=== PATIENT | male | born 1970 | race Hispanic/Latino ===

== ENCOUNTER 2017-12-13 22:13 | Emergency (ER) | payer OTHER | END 2017-12-13 23:26 | disposition home or self-care (01) | LOC: EDH 22:13 | DX: S10.91XA Abrasion of unspecified part of neck, initial encounter (principal); Z72.0 Tobacco use; V49.49XA Driver injured in collision with other motor vehicles in traffic accident, initial encounter; Y93.89 Activity, other specified; Y92.89 Other specified places as the place of occurrence of the external cause; Y99.8 Other external cause status ==

== ENCOUNTER 2021-02-06 16:21 | Inpatient (IN) | payer OTHER ==
[~2021-02-06] VITALS: Ht 167.6 cm; Wt 79.8 kg
[2021-02-06 16:23] VITALS: BP 137/75
[2021-02-06] MEDS ORDERED: HYDROCODONE/ACETAMINOPHEN 10/325 MG TAB PO ONE (17:00)
[2021-02-06] MEDS ORDERED: TETANUS/DIPHTHERIA TOXOID [ADULT] 0.5 ML VIAL IM ONE (17:00)
[2021-02-06] MEDS ORDERED: 0.9% NACL 50ML 50 ML IV.SOLN. IV SCH (17:00)
[2021-02-06] MEDS ORDERED: PIP/TAZ ZOSYN 3.375G 3.375 GM VIAL IVPB ONE (17:00)
[2021-02-06] MEDS ORDERED: DOXYCYCLINE 100MG IVPB (VIAL) IVPB ONE (17:15)
[2021-02-06] MEDS ORDERED: 0.9%NACL 250ML IV ONE (17:15)
[2021-02-06 17:17] LABS: BASOPHILS % (AUTO) 0.2 % (0.0-5.0); EOSINOPHILS % (AUTO) 0.8 % (0.0-8.0); HEMATOCRIT 38.7 % (42-54); LYMPHOCYTES % (AUTO) 6.5 % (21.0-51.0); MEAN CORPUSCULAR HEMOGLOBIN 31.2 pg (27.0-33.0); MEAN CORPUSCULAR HGB CONC 33.1 g/dL (32.0-36.0); MEAN CORPUSCULAR VOLUME 94.4 fL (79-99); MONOCYTES % (AUTO) 7.4 % (3.0-13.0); NEUTROPHILS % (AUTO) 84.7 % (40.0-77.0); PLATELET COUNT (AUTO) 339 K/uL (130-400); RED CELL DISTRIBUTION WIDTH 13.5 % (11.0-15.5); WHITE BLOOD COUNT (AUTO) 13.3 K/uL (4.8-10.8)
[2021-02-06] MEDS ORDERED: ZOSYN 3.375GM+NS 50ML 50 ML IV ONE (17:22)
[2021-02-06] MEDS ORDERED: DOXYCYCLINE 100MG+NS 250ML 250 ML IV ONE (17:23)
[2021-02-06 17:27] LABS: CREATININE 0.8 mg/dL (0.5-1.5); POTASSIUM 3.4 mmol/L (3.5-5.1)
[2021-02-06] MEDS: DOXYCYCLINE 100MG+NS 250ML IV SCH ×2 (17:30→18:35)
[2021-02-06] MEDS: 0.9%NACL 250ML 250 ML IV SCH (17:30)
[2021-02-06 17:31] LABS: ALBUMIN 3.2 g/dL (3.5-5.0); BILIRUBIN,TOTAL 0.5 mg/dL (0.2-1.0); TOTAL PROTEIN, SERUM 7.9 g/dL (6.0-8.3)
[2021-02-06] MEDS ORDERED: ONDANSETRON 4MG INJ IV PRN (18:30)
[2021-02-06] MEDS ORDERED: ACETAMINOPHEN 325 MG TAB PO PRN (18:30)
[2021-02-06] MEDS ORDERED: NITROGLYCERIN 0.4 MG SL TAB SL PRN (18:30)
[2021-02-06] MEDS ORDERED: NACL 0.9% 1000ML 1,000 ML IV SCH (18:30)
[2021-02-06] MEDS ORDERED: KCL 20 MEQ ERTAB PO ONE ×2 (18:30→20:15)
[2021-02-06] MEDS ORDERED: VANCOMYCIN PROTOCOL PER PHARMACY IV SCH (18:30)
[2021-02-06] MEDS ORDERED: COMPOUND IV REFRIGERATED 1 EACH IVSOLN MISC PRN (19:15)
[2021-02-06] MEDS ORDERED: [UNRECOGNIZED DRUG - OTHER] IV SCH (19:30)
[2021-02-06] MEDS ORDERED: VANCOMYCIN IV SCH (19:30)
[2021-02-06 20:00] VITALS: BP 162/102
[2021-02-06] MEDS ORDERED: VANCOMYCIN IV ONE (20:16)
[2021-02-06 20:18] LABS: INR 1.04 (0.85-1.15); PROTHROMBIN TIME 11.3 SEC (9.6-11.6)
[2021-02-06 20:19] LABS: PARTIAL THROMBOPLASTIN TIME 28.5 SEC (26.3-35.5)
[2021-02-06] MEDS: NACL 0.9% 1000ML 1,000 ML IV SCH (20:30)
[2021-02-06] MEDS: VANCOMYCIN IV SCH (20:51)
[2021-02-06] MEDS: [UNRECOGNIZED DRUG - OTHER] IV SCH (20:51)
[2021-02-06 21:29] LABS: HEMOGLOBIN A1C 5.4 % (4.0-6.0)
[2021-02-06] MEDS: FAMOTIDINE 20MG TAB PO SCH (21:33)
[2021-02-06] MEDS: HYDROCODONE/ACETAMINOPHEN 5/325 MG TAB PO PRN (21:45)
[2021-02-06 23:00] VITALS: BP 157/105
[2021-02-07] VITALS (33 sets, daily range): BP systolic 120–171; BP diastolic 70–102
[2021-02-07] MEDS ORDERED: ZOSYN 3.375GM+NS 50ML 50 ML IV ONE ×4 (02:29→23:59)
[2021-02-07] MEDS: 0.9% NACL 50ML 50 ML IV.SOLN. IV SCH ×3 (02:31→17:00)
[2021-02-07] MEDS: PIP/TAZ ZOSYN 3.375G 3.375 GM VIAL IVPB SCH ×3 (02:31→17:42)
[2021-02-07] MEDS: HYDROCODONE/ACETAMINOPHEN 5/325 MG TAB PO PRN ×5 (03:20→23:51)
[2021-02-07] MEDS ORDERED: DIPHENHYDRAMINE HCL 25 MG CAPSULE PO PRN (03:30)
[2021-02-07] MEDS: NACL 0.9% 1000ML 1,000 ML IV SCH ×2 (04:47→16:29)
[2021-02-07 06:27] LABS: APPEARANCE,URINE CLEAR (CLEAR); BILIRUBIN,URINE NEGATIVE (NEGATIVE); COLOR,URINE YELLOW (YELLOW); GLUCOSE, URINE (UA) NEGATIVE (NEGATIVE); KETONES,URINE NEGATIVE (NEGATIVE); LEUKOCYTE ESTERASE ,URINE NEGATIVE (NEGATIVE); NITRATE,URINE NEGATIVE (NEGATIVE); OCCULT BLOOD,URINE NEGATIVE (NEGATIVE); PROTEIN,URINE NEGATIVE (NEGATIVE)
[2021-02-07 06:34] LABS: AMPHET/METH SCREEN,URINE NEGATIVE (NEGATIVE); BARBITURATE SCREEN, URINE NEGATIVE (NEGATIVE); BENZODIAZEPINES SCREEN,URINE NEGATIVE (NEGATIVE); CANNABINOID SCREEN,URINE NEGATIVE (NEGATIVE); COCAINE SCREEN,URINE NEGATIVE (NEGATIVE); OPIATE SCREEN,URINE POSITIVE (NEGATIVE); PHENCYCLIDINE SCREEN,URINE NEGATIVE (NEGATIVE)
[2021-02-07 06:52] LABS: BASOPHILS % (AUTO) 0.4 % (0.0-5.0); EOSINOPHILS % (AUTO) 2.5 % (0.0-8.0); HEMATOCRIT 35.1 % (42-54); LYMPHOCYTES % (AUTO) 11.2 % (21.0-51.0); MEAN CORPUSCULAR HEMOGLOBIN 30.8 pg (27.0-33.0); MEAN CORPUSCULAR HGB CONC 32.8 g/dL (32.0-36.0); MEAN CORPUSCULAR VOLUME 94.1 fL (79-99); MONOCYTES % (AUTO) 9.3 % (3.0-13.0); NEUTROPHILS % (AUTO) 76.3 % (40.0-77.0); PLATELET COUNT (AUTO) 314 K/uL (130-400); RED BLOOD CELL COUNT(AUTO) 3.73 MIL/uL (4.50-6.20); RED CELL DISTRIBUTION WIDTH 13.8 % (11.0-15.5); WHITE BLOOD COUNT (AUTO) 10.6 K/uL (4.8-10.8)
[2021-02-07] MEDS ORDERED: DOXYCYCLINE 100MG+NS 250ML 250 ML IV ONE (06:53)
[2021-02-07] MEDS: 0.9%NACL 250ML 250 ML IV SCH ×2 (07:02→17:30)
[2021-02-07 07:11] LABS: ALBUMIN 2.7 g/dL (3.5-5.0); BILIRUBIN,TOTAL 0.5 mg/dL (0.2-1.0); CREATININE 0.8 mg/dL (0.5-1.5); MAGNESIUM 1.9 mg/dL (1.80-2.40); TOTAL PROTEIN, SERUM 6.9 g/dL (6.0-8.3)
[2021-02-07] MEDS: [UNRECOGNIZED DRUG - OTHER] IV SCH ×2 (08:00→20:53)
[2021-02-07] MEDS: VANCOMYCIN IV SCH ×2 (08:00→20:53)
[2021-02-07] MEDS: FAMOTIDINE 20MG TAB PO SCH ×2 (09:00→20:03)
[2021-02-07] MEDS ORDERED: MIDAZOLAM HCL 1 MG/ML 2ML VIAL ONE (10:25)
[2021-02-07] MEDS ORDERED: SUCCINYLCHOLINE 200MG/10ML SYR ONE (10:25)
[2021-02-07] MEDS ORDERED: LIDOCAINE PF 100MG/5ML (2%) SYRINGE 5ML ONE (10:25)
[2021-02-07] MEDS ORDERED: FENTANYL CITRATE PF 50 MCG/1 ML 2ML VIAL ONE (10:25)
[2021-02-07] MEDS ORDERED: ONDANSETRON 4MG INJ ONE (10:25)
[2021-02-07] MEDS ORDERED: DEXAMETHASONE SOD PHOSPHATE 10MG/ML 1ML VIAL ONE (10:25)
[2021-02-07] MEDS ORDERED: PROPOFOL 10 MG/ML 20ML VIAL IV ONE (10:25)
[2021-02-07] MEDS ORDERED: MEPERIDINE-PF 25 MG/ML SYG ONE ×2 (10:28→11:35)
[2021-02-07] MEDS ORDERED: VANCOMYCIN KIT 250 ML IV ONE (10:32)
[2021-02-07] MEDS ORDERED: CEFAZOLIN SODIUM 1 GM VIAL ONE (10:38)
[2021-02-07] MEDS ORDERED: KETOROLAC 30MG VIAL (30MG/ML) ONE (10:59)
[2021-02-07] MEDS ORDERED: HYDRALAZINE 20MG/ML VIAL ONE (11:28)
[2021-02-07] MEDS ORDERED: IOHEXOL-350 75 ML VIAL IV ONE (12:30)
[2021-02-07] MEDS: DOXYCYCLINE HYCLATE 100 MG TABLET PO SCH (20:03)
[2021-02-08] MEDS: 0.9% NACL 50ML 50 ML IV.SOLN. IV SCH ×3 (00:01→17:13)
[2021-02-08] MEDS: PIP/TAZ ZOSYN 3.375G 3.375 GM VIAL IVPB SCH ×3 (00:01→17:12)
[2021-02-08] MEDS: NACL 0.9% 1000ML 1,000 ML IV SCH ×3 (00:30→20:45)
[2021-02-08 04:00] VITALS: BP 124/77
[2021-02-08 05:04] LABS: BASOPHILS % (AUTO) 0.2 % (0.0-5.0); EOSINOPHILS % (AUTO) 0.2 % (0.0-8.0); MEAN CORPUSCULAR HEMOGLOBIN 31.5 pg (27.0-33.0); MEAN CORPUSCULAR HGB CONC 33.8 g/dL (32.0-36.0); MEAN CORPUSCULAR VOLUME 93.3 fL (79-99); MONOCYTES % (AUTO) 5.9 % (3.0-13.0); NEUTROPHILS % (AUTO) 83.2 % (40.0-77.0); PLATELET COUNT (AUTO) 307 K/uL (130-400); RED BLOOD CELL COUNT(AUTO) 3.43 MIL/uL (4.50-6.20); RED CELL DISTRIBUTION WIDTH 13.8 % (11.0-15.5); WHITE BLOOD COUNT (AUTO) 11.6 K/uL (4.8-10.8)
[2021-02-08] MEDS: 0.9%NACL 250ML 250 ML IV SCH ×2 (05:30→17:30)
[2021-02-08 05:34] LABS: CREATININE 0.7 mg/dL (0.5-1.5); POTASSIUM 3.8 mmol/L (3.5-5.1)
[2021-02-08 07:01] VITALS: BP 137/82
[2021-02-08] MEDS: [UNRECOGNIZED DRUG - OTHER] IV SCH ×2 (08:00→20:14)
[2021-02-08] MEDS: VANCOMYCIN IV SCH ×2 (08:00→20:14)
[2021-02-08] MEDS: FAMOTIDINE 20MG TAB PO SCH ×2 (08:36→20:13)
[2021-02-08] MEDS: DOXYCYCLINE HYCLATE 100 MG TABLET PO SCH ×2 (08:36→20:13)
[2021-02-08] MEDS: HYDROCODONE/ACETAMINOPHEN 5/325 MG TAB PO PRN ×4 (08:38→20:22)
[2021-02-08] MEDS ORDERED: ZOSYN 3.375GM+NS 50ML 50 ML IV ONE ×2 (10:35→17:05)
[2021-02-08 10:49] VITALS: BP 130/77
[2021-02-08 16:14] VITALS: BP 141/81
[2021-02-08 20:02] VITALS: BP 133/93
[2021-02-09] VITALS (22 sets, daily range): BP systolic 118–176; BP diastolic 60–100
[2021-02-09] MEDS ORDERED: ZOSYN 3.375GM+NS 50ML 50 ML IV ONE (00:32)
[2021-02-09] MEDS: PIP/TAZ ZOSYN 3.375G 3.375 GM VIAL IVPB SCH (00:34)
[2021-02-09] MEDS: HYDROCODONE/ACETAMINOPHEN 5/325 MG TAB PO PRN ×3 (00:35→21:59)
[2021-02-09] MEDS: 0.9% NACL 50ML 50 ML IV.SOLN. IV SCH ×3 (00:36→17:00)
[2021-02-09] MEDS: 0.9%NACL 250ML 250 ML IV SCH ×2 (03:20→17:30)
[2021-02-09 05:58] LABS: BASOPHILS % (AUTO) 0.9 % (0.0-5.0); EOSINOPHILS % (AUTO) 4.7 % (0.0-8.0); HEMATOCRIT 31.4 % (42-54); MEAN CORPUSCULAR HEMOGLOBIN 31.1 pg (27.0-33.0); MEAN CORPUSCULAR HGB CONC 32.5 g/dL (32.0-36.0); MEAN CORPUSCULAR VOLUME 95.7 fL (79-99); MONOCYTES % (AUTO) 8.7 % (3.0-13.0); NEUTROPHILS % (AUTO) 47.3 % (40.0-77.0); PLATELET COUNT (AUTO) 310 K/uL (130-400); RED BLOOD CELL COUNT(AUTO) 3.28 MIL/uL (4.50-6.20); RED CELL DISTRIBUTION WIDTH 14.1 % (11.0-15.5); WHITE BLOOD COUNT (AUTO) 4.5 K/uL (4.8-10.8)
[2021-02-09 06:15] LABS: CREATININE 0.8 mg/dL (0.5-1.5); CRP QUANTITATIVE 90.7 mg/L (0.00-9.0); MAGNESIUM 1.7 mg/dL (1.80-2.40); POTASSIUM 3.9 mmol/L (3.5-5.1)
[2021-02-09] MEDS: NACL 0.9% 1000ML 1,000 ML IV SCH ×2 (06:30→22:03)
[2021-02-09 07:06] LABS: ERYTHROCYTE SEDIMENTATION RATE 45 MM/HR (0-20)
[2021-02-09] MEDS ORDERED: ONDANSETRON 4MG INJ ONE (07:11)
[2021-02-09] MEDS ORDERED: MIDAZOLAM HCL 1 MG/ML 2ML VIAL ONE (07:11)
[2021-02-09] MEDS ORDERED: DEXAMETHASONE SOD PHOSPHATE 10MG/ML 1ML VIAL ONE (07:11)
[2021-02-09] MEDS ORDERED: SUCCINYLCHOLINE 200MG/10ML SYR ONE (07:11)
[2021-02-09] MEDS ORDERED: LIDOCAINE PF 100MG/5ML (2%) SYRINGE 5ML ONE (07:11)
[2021-02-09] MEDS ORDERED: PROPOFOL 10 MG/ML 20ML VIAL IV ONE (07:11)
[2021-02-09] MEDS ORDERED: MEPERIDINE-PF 25 MG/ML SYG ONE (07:12)
[2021-02-09] MEDS ORDERED: FENTANYL CITRATE PF 50 MCG/1 ML 2ML VIAL ONE ×2 (07:12→08:01)
[2021-02-09] MEDS ORDERED: HYDRALAZINE 20MG/ML VIAL ONE (07:51)
[2021-02-09] MEDS: [UNRECOGNIZED DRUG - OTHER] IV SCH ×2 (11:00→21:59)
[2021-02-09] MEDS: VANCOMYCIN IV SCH ×2 (11:00→21:59)
[2021-02-09] MEDS: FAMOTIDINE 20MG TAB PO SCH ×2 (12:10→21:06)
[2021-02-09] MEDS: DOXYCYCLINE HYCLATE 100 MG TABLET PO SCH (12:10)
[2021-02-10 00:24] VITALS: BP 107/64
[2021-02-10] MEDS: 0.9% NACL 50ML 50 ML IV.SOLN. IV SCH ×3 (01:00→17:00)
[2021-02-10] MEDS: HYDROCODONE/ACETAMINOPHEN 5/325 MG TAB PO PRN ×3 (04:21→20:10)
[2021-02-10 04:24] VITALS: BP 137/80
[2021-02-10] MEDS: 0.9%NACL 250ML 250 ML IV SCH ×2 (05:30→17:30)
[2021-02-10 06:36] LABS: BASOPHILS % (AUTO) 0.3 % (0.0-5.0); EOSINOPHILS % (AUTO) 1.3 % (0.0-8.0); HEMATOCRIT 33.8 % (42-54); LYMPHOCYTES % (AUTO) 21.8 % (21.0-51.0); MEAN CORPUSCULAR HEMOGLOBIN 30.4 pg (27.0-33.0); MEAN CORPUSCULAR HGB CONC 32.8 g/dL (32.0-36.0); MEAN CORPUSCULAR VOLUME 92.6 fL (79-99); MONOCYTES % (AUTO) 9.2 % (3.0-13.0); NEUTROPHILS % (AUTO) 66.4 % (40.0-77.0); PLATELET COUNT (AUTO) 383 K/uL (130-400); RED BLOOD CELL COUNT(AUTO) 3.65 MIL/uL (4.50-6.20); WHITE BLOOD COUNT (AUTO) 8.6 K/uL (4.8-10.8)
[2021-02-10 06:46] LABS: CREATININE 0.8 mg/dL (0.5-1.5); CRP QUANTITATIVE 49.1 mg/L (0.00-9.0); POTASSIUM 3.6 mmol/L (3.5-5.1)
[2021-02-10 06:59] LABS: % IRON SATURATION 41.7 % (30-44)
[2021-02-10 07:41] LABS: ERYTHROCYTE SEDIMENTATION RATE 40 MM/HR (0-20)
[2021-02-10 07:57] VITALS: BP 118/74
[2021-02-10] MEDS: [UNRECOGNIZED DRUG - OTHER] IV SCH (08:00)
[2021-02-10] MEDS: VANCOMYCIN IV SCH (08:00)
[2021-02-10] MEDS: FAMOTIDINE 20MG TAB PO SCH ×2 (10:50→20:09)
[2021-02-10 11:41] VITALS: BP 121/70
[2021-02-10] MEDS: NACL 0.9% 1000ML 1,000 ML IV SCH ×2 (12:30→20:12)
[2021-02-10] MEDS: CLINDAMYCIN 150 MG CAP PO SCH ×2 (12:57→20:09)
[2021-02-10] MEDS ORDERED: SODIUM HYPOCHLORITE 0.25% [HALF STRENGTH] 473 ML TOPICAL SOLN TP SCH (15:00)
[2021-02-10] MEDS ORDERED: MORPHINE 2 MG SYG ONE (15:16)
[2021-02-10] MEDS ORDERED: MORPHINE 2 MG SYG IVP ONE (15:45)
[2021-02-10 16:00] VITALS: BP 144/92
[2021-02-10 20:20] VITALS: BP 138/85
[2021-02-11 00:20] VITALS: BP 137/85
[2021-02-11] MEDS: 0.9% NACL 50ML 50 ML IV.SOLN. IV SCH ×3 (01:00→16:43)
[2021-02-11] MEDS: HYDROCODONE/ACETAMINOPHEN 5/325 MG TAB PO PRN ×2 (01:05→05:16)
[2021-02-11 04:20] VITALS: BP 125/77
[2021-02-11 05:16] LABS: BASOPHILS % (AUTO) 1.7 % (0.0-5.0); EOSINOPHILS % (AUTO) 5.8 % (0.0-8.0); HEMATOCRIT 36.2 % (42-54); LYMPHOCYTES % (AUTO) 32.1 % (21.0-51.0); MEAN CORPUSCULAR HEMOGLOBIN 30.1 pg (27.0-33.0); MONOCYTES % (AUTO) 10.9 % (3.0-13.0); NEUTROPHILS % (AUTO) 44.9 % (40.0-77.0); PLATELET COUNT (AUTO) 413 K/uL (130-400); RED BLOOD CELL COUNT(AUTO) 3.85 MIL/uL (4.50-6.20); RED CELL DISTRIBUTION WIDTH 14.1 % (11.0-15.5)
[2021-02-11] MEDS: CLINDAMYCIN 150 MG CAP PO SCH ×3 (05:16→21:01)
[2021-02-11 05:23] LABS: CREATININE 0.9 mg/dL (0.5-1.5)
[2021-02-11] MEDS: 0.9%NACL 250ML 250 ML IV SCH ×2 (05:30→16:43)
[2021-02-11 08:01] VITALS: BP 128/72
[2021-02-11] MEDS: FAMOTIDINE 20MG TAB PO SCH ×2 (08:24→21:01)
[2021-02-11] MEDS: NACL 0.9% 1000ML 1,000 ML IV SCH (08:30)
[2021-02-11] MEDS ORDERED: MORPHINE 2 MG SYG IVP SCH (10:30)
[2021-02-11 11:48] VITALS: BP 146/89
[2021-02-11] MEDS ORDERED: MORPHINE 2 MG SYG ONE (14:21)
[2021-02-11 16:44] VITALS: BP 134/86
[2021-02-11] MEDS: KETOROLAC 30MG VIAL (30MG/ML) IV PRN (18:54)
[2021-02-11 20:00] VITALS: BP 129/75
[2021-02-12] VITALS (7 sets, daily range): BP systolic 121–146; BP diastolic 72–85
[2021-02-12] MEDS: CLINDAMYCIN 150 MG CAP PO SCH ×3 (04:21→21:02)
[2021-02-12 05:07] LABS: BASOPHILS % (AUTO) 1.6 % (0.0-5.0); EOSINOPHILS % (AUTO) 7.5 % (0.0-8.0); HEMATOCRIT 38.5 % (42-54); LYMPHOCYTES % (AUTO) 30.5 % (21.0-51.0); MEAN CORPUSCULAR HEMOGLOBIN 30.8 pg (27.0-33.0); MEAN CORPUSCULAR HGB CONC 32.5 g/dL (32.0-36.0); MEAN CORPUSCULAR VOLUME 94.8 fL (79-99); MONOCYTES % (AUTO) 13.4 % (3.0-13.0); NEUTROPHILS % (AUTO) 40.4 % (40.0-77.0); PLATELET COUNT (AUTO) 427 K/uL (130-400); RED BLOOD CELL COUNT(AUTO) 4.06 MIL/uL (4.50-6.20); RED CELL DISTRIBUTION WIDTH 14.2 % (11.0-15.5); WHITE BLOOD COUNT (AUTO) 5.6 K/uL (4.8-10.8)
[2021-02-12 05:10] LABS: CRP QUANTITATIVE 20.4 mg/L (0.00-9.0)
[2021-02-12 06:14] LABS: ERYTHROCYTE SEDIMENTATION RATE 30 MM/HR (0-20)
[2021-02-12] MEDS: FAMOTIDINE 20MG TAB PO SCH ×2 (08:54→21:02)
[2021-02-12] MEDS: KETOROLAC 30MG VIAL (30MG/ML) IV PRN ×2 (08:55→21:12)
[2021-02-12] MEDS: ACETAMINOPHEN 325 MG TAB PO PRN (13:25)
[2021-02-12] MEDS: MORPHINE 2 MG SYG IVP PRN (15:27)
[2021-02-13 03:59] VITALS: BP 142/84
[2021-02-13] MEDS: CLINDAMYCIN 150 MG CAP PO SCH ×3 (04:23→22:32)
[2021-02-13] MEDS: KETOROLAC 30MG VIAL (30MG/ML) IV PRN ×3 (04:24→17:47)
[2021-02-13 04:51] LABS: BASOPHILS % (AUTO) 1.4 % (0.0-5.0); EOSINOPHILS % (AUTO) 7.6 % (0.0-8.0); HEMATOCRIT 39.2 % (42-54); LYMPHOCYTES % (AUTO) 29.2 % (21.0-51.0); MEAN CORPUSCULAR HEMOGLOBIN 30.5 pg (27.0-33.0); MEAN CORPUSCULAR HGB CONC 32.7 g/dL (32.0-36.0); MEAN CORPUSCULAR VOLUME 93.3 fL (79-99); MONOCYTES % (AUTO) 11.4 % (3.0-13.0); NEUTROPHILS % (AUTO) 45.6 % (40.0-77.0); PLATELET COUNT (AUTO) 452 K/uL (130-400); WHITE BLOOD COUNT (AUTO) 5.8 K/uL (4.8-10.8)
[2021-02-13 05:03] LABS: CREATININE 0.9 mg/dL (0.5-1.5); POTASSIUM 4.3 mmol/L (3.5-5.1)
[2021-02-13 07:59] VITALS: BP 158/65
[2021-02-13] MEDS: FAMOTIDINE 20MG TAB PO SCH ×2 (08:44→22:31)
[2021-02-13 11:36] VITALS: BP 137/92
[2021-02-13] MEDS: MORPHINE 2 MG SYG IVP PRN (14:06)
[2021-02-13 16:34] VITALS: BP 142/90
[2021-02-13 19:58] VITALS: BP 137/82
[2021-02-13 23:44] VITALS: BP 162/93
[2021-02-14] MEDS: KETOROLAC 30MG VIAL (30MG/ML) IV PRN ×2 (00:04→06:51)
[2021-02-14] MEDS: CLINDAMYCIN 150 MG CAP PO SCH ×2 (03:43→12:35)
[2021-02-14] MEDS: ACETAMINOPHEN 325 MG TAB PO PRN (03:47)
[2021-02-14 03:55] VITALS: BP 135/93
[2021-02-14 05:04] LABS: BASOPHILS % (AUTO) 0.9 % (0.0-5.0); EOSINOPHILS % (AUTO) 8.5 % (0.0-8.0); HEMATOCRIT 37.2 % (42-54); LYMPHOCYTES % (AUTO) 27.6 % (21.0-51.0); MEAN CORPUSCULAR HEMOGLOBIN 30.3 pg (27.0-33.0); MEAN CORPUSCULAR HGB CONC 32.5 g/dL (32.0-36.0); MONOCYTES % (AUTO) 10.5 % (3.0-13.0); NEUTROPHILS % (AUTO) 48.6 % (40.0-77.0); PLATELET COUNT (AUTO) 434 K/uL (130-400); RED CELL DISTRIBUTION WIDTH 13.9 % (11.0-15.5); WHITE BLOOD COUNT (AUTO) 5.9 K/uL (4.8-10.8)
[2021-02-14 05:09] LABS: CREATININE 0.9 mg/dL (0.5-1.5); CRP QUANTITATIVE 9.7 mg/L (0.00-9.0); POTASSIUM 4.3 mmol/L (3.5-5.1)
[2021-02-14 06:21] LABS: ERYTHROCYTE SEDIMENTATION RATE 19 MM/HR (0-20)
[2021-02-14 08:00] VITALS: BP 152/92
[2021-02-14] MEDS: FAMOTIDINE 20MG TAB PO SCH (10:05)
[2021-02-14 12:00] VITALS: BP 142/83
[2021-02-14 16:00] VITALS: BP 133/86
[2021-02-14] MEDS ORDERED: CLIN300C10 PO (17:51)
== END 2021-02-14 19:00 | disposition home or self-care (01) | DRG 854 ==
LOC: EDH 16:21 → EDHIP 18:13 → 3CH 02-07 13:42
PROVIDERS: ADMIT Internal Medicine; ATTEND Internal Medicine
PROC: 0HBGXZZ Excision of Left Hand Skin, External Approach (ICD-10-PCS; 2021-02-07)
PROC: 0KBD0ZZ Excision of Left Hand Muscle, Open Approach (ICD-10-PCS; principal; 2021-02-09 08:00)
DX: A41.9 Sepsis, unspecified organism (principal); L02.512 Cutaneous abscess of left hand; L03.114 Cellulitis of left upper limb; L02.511 Cutaneous abscess of right hand; S61.432A Puncture wound without foreign body of left hand, initial encounter; F17.210 Nicotine dependence, cigarettes, uncomplicated; E87.6 Hypokalemia; Z20.822 Contact with and (suspected) exposure to COVID-19; M89.9 Disorder of bone, unspecified; A49.01 Methicillin susceptible Staphylococcus aureus infection, unspecified site; Y99.0 Civilian activity done for income or pay; Y93.89 Activity, other specified; Y92.89 Other specified places as the place of occurrence of the external cause; Z83.3 Family history of diabetes mellitus; Z80.1 Family history of malignant neoplasm of trachea, bronchus and lung; Z83.2 Family history of diseases of the blood and blood-forming organs and certain disorders involving the immune mechanism
CPT/HCPCS: 36415; 71045; 73130; 73202; 80048; 80053; 80202; 80305; 81003; 82728; 83036; 83540; 83550; 83605; 83735; 84145; 84484; 85025; 85610; 85651; 85730; 86140; 87040; 87070; 87076; 87077; 87186; 87205; 87635; 87641; 90714; 93005; A6266; C9803; G0378; J0330; J0360; J0690; J1100; J1885; J2001; J2175; J2250; J2405; J2543; J2704; J3010; J3370; J3490; J7030; J7050; Q9967

== ENCOUNTER → 2021-02-15 | Outpatient (CLI) | payer SELFPAY ==
[~2021-02-15] MED LIST: CLIN300C10 PO
== END | disposition home or self-care (01) ==
LOC: WHH 10:07
PROVIDERS: ATTEND Family Medicine
DX: T81.31XA Disruption of external operation (surgical) wound, not elsewhere classified, initial encounter (principal); F17.210 Nicotine dependence, cigarettes, uncomplicated; Y83.8 Other surgical procedures as the cause of abnormal reaction of the patient, or of later complication, without mention of misadventure at the time of the procedure; Y92.238 Other place in hospital as the place of occurrence of the external cause
CPT/HCPCS: 99215; A4450

== ENCOUNTER → 2021-02-28 | Outpatient (CLI) | payer SELFPAY ==
[~2021-02-28] MED LIST changes: +LIDOCAINE HCL 4% LTA SOL 4 ML VIAL TP ONE
== END | disposition home or self-care (01) ==
LOC: WHH 10:43
PROVIDERS: ATTEND Family Medicine
DX: T81.31XD Disruption of external operation (surgical) wound, not elsewhere classified, subsequent encounter (principal); F17.210 Nicotine dependence, cigarettes, uncomplicated; Y83.8 Other surgical procedures as the cause of abnormal reaction of the patient, or of later complication, without mention of misadventure at the time of the procedure
CPT/HCPCS: 99214; A4450

== ENCOUNTER → 2021-03-07 | Outpatient (CLI) | payer SELFPAY | END | disposition home or self-care (01) | LOC: WHH 10:30 | PROVIDERS: ATTEND Family Medicine | DX: T81.31XD Disruption of external operation (surgical) wound, not elsewhere classified, subsequent encounter (principal); F17.210 Nicotine dependence, cigarettes, uncomplicated; Y83.8 Other surgical procedures as the cause of abnormal reaction of the patient, or of later complication, without mention of misadventure at the time of the procedure | CPT/HCPCS: 99214 ==

== ENCOUNTER → 2021-03-14 | Outpatient (CLI) | payer SELFPAY | END | disposition home or self-care (01) | LOC: WHH 10:27 | PROVIDERS: ATTEND Family Medicine | DX: T81.31XD Disruption of external operation (surgical) wound, not elsewhere classified, subsequent encounter (principal); F17.210 Nicotine dependence, cigarettes, uncomplicated; Y83.8 Other surgical procedures as the cause of abnormal reaction of the patient, or of later complication, without mention of misadventure at the time of the procedure | CPT/HCPCS: 17250 ==

== ENCOUNTER 2021-03-28 11:15 | Outpatient (CLI) | payer SELFPAY ==
[~2021-03-28 11:15] MED LIST changes: -LIDOCAINE HCL 4% LTA SOL 4 ML VIAL TP ONE
== END 2021-03-28 14:04 | disposition home or self-care (01) ==
LOC: WHH 11:15
PROVIDERS: ATTEND Family Medicine
DX: T81.31XD Disruption of external operation (surgical) wound, not elsewhere classified, subsequent encounter (principal); F17.210 Nicotine dependence, cigarettes, uncomplicated; Y83.8 Other surgical procedures as the cause of abnormal reaction of the patient, or of later complication, without mention of misadventure at the time of the procedure
CPT/HCPCS: 99214